=== PATIENT | male | born 1945 | race Caucasian/White ===

== ENCOUNTER 2017-01-20 11:00 | Emergency (ER) | payer MEDICARE, BC ==
[2017-01-20] MEDS ORDERED: Ketorolac 60 MG/2 ML SDV IM ONE (11:02)
[2017-01-20] MEDS ORDERED: Dexamethasone 4 MG/ML SDV IM ONE (11:02)
[2017-01-20 11:13] VITALS: BP 162/118
[2017-01-20] MEDS ORDERED: Take Home: predniSONE 20 MG, 2 Tab Pack PO ONE (11:35)
[2017-01-20] MEDS ORDERED: Take Home: Ketorolac 10 MG Tab, 4 Tab Pack PO ONE (11:35)
[2017-01-20] MEDS ORDERED: Take Home: predniSONE 20 MG, 2 Tab Pack ONE (11:42)
--- NOTE | 2017-01-20 11:42 | EDM.PDOC ---
ED HPI GENERAL MEDICAL PROBLEM - General Chief Complaint: General Stated Complaint: LEFT ELBOW PAIN Time Seen by Provider: 01/20/17 11:00 - History of Present Illness INITIAL COMMENTS - FREE TEXT/NARRATIVE: C/O severe elbow pain Onset: Gradual Duration: Day(s): Location: Reports: Upper Extremity, Left Front/Back Body Image: 1 - Red swollen elbow Quality: Reports: Sharp, Throbbing Severity: Severe Improves with: Reports: Medication Worsens with: Reports: Movement - Related Data Allergies Allergy/AdvReac Type Severity Reaction Status Date / Time sulfamethoxazole Allergy Cannot Verified 01/20/17 11:30 [From Bactrim] Remember trimethoprim [From Bactrim] Allergy Cannot Verified 05/18/15 10:06 Remember Home Meds: Home Meds Aspirin [Halfprin] 81 mg PO DAILY 04/23/15 [History] Diltiazem HCl [Cardizem Cd] 120 mg PO DAILY 04/23/15 [History] Metoprolol Succinate [Toprol XL] 50 mg PO DAILY 04/23/15 [History] Triamterene/Hydrochlorothiazid [Triamterene-HCTZ 37.5-25 MG] 1 cap PO DAILY [History] Past Medical History - Past Health History Medical/Surgical History: Denies Medical/Surgical History Musculoskeletal History: Reports: Connective Tissue Disease, Other (See Below) - Past Surgical History Other Musculoskeletal Surgeries/Procedures:: POSSIBLE GOUT L ELBOW Social & Family History - Family History Family Medical History: Unobtainable - Tobacco Use Smoking Status *Q: Former Smoker Used Tobacco, but Quit: No - Caffeine Use Caffeine Use: Reports: None - Recreational Drug Use Recreational Drug Use: No ED ROS GENERAL - Review of Systems Review Of Systems: ROS reveals no pertinent complaints other than HPI. ED EXAM, GENERAL - Physical Exam Exam: See Below Exam Limited By: No Limitations Ears: Normal External Exam Throat/Mouth: Normal Inspection Head: Atraumatic Neck: Normal Inspection Respiratory/Chest: No Respiratory Distress Cardiovascular: Normal Peripheral Pulses GI/Abdominal: Normal Bowel Sounds Extremities: Joint Swelling, Arm Pain, Limited Range of Motion Neurological: Alert, Oriented Psychiatric: Normal Affect Skin Exam: Erythema Course - Vital Signs Last Recorded V/S: Last Vital Signs Temp 99.3 F 01/20/17 11:02 Pulse 107 H 01/20/17 11:02 Resp 18 01/20/17 11:02 BP 162/118 H 01/20/17 11:02 Pulse Ox 98 01/20/17 11:02 - Orders/Labs/Meds Labs: Laboratory Tests 01/20/17 01/20/17 Range/Units 11:02 11:02 WBC 12.4 H (5.0-10.0) 10^3/uL RBC 5.09 (4.50-6.00) 10^6/uL Hgb 15.5 (14.0-18.0) g/dL Hct 45.0 (40.0-54.0) % MCV 88.4 (82.0-94.0) fL MCH 30.5 (27.0-32.0) pg MCHC 34.4 (33.0-38.0) g/dL RDW Coeff of Beatriz 14.3 (11.0-15.0) % Plt Count 205 (150-400) 10^3/uL Neut % (Auto) 73.8 (35-85) % Lymph % (Auto) 16.1 (10-55) % [place] % (Auto) 9.3 (0-16) % Eos % (Auto) 0.6 (0-5) % Baso % (Auto) 0.2 (0-3) % Neut # (Auto) 9.16 H (1.80-7.00) 10^3/uL Lymph # (Auto) 1.99 (1.00-4.80) 10^3/uL [place] # (Auto) 1.15 H (0.00-0.80) 10^3/uL Eos # (Auto) 0.07 (0.00-0.45) 10^3/uL Baso # (Auto) 0.02 10^3/uL Uric Acid 9.1 H (3.5-7.2) mg/dL Meds: Medications Discontinued Medications Generic Name Dose Route Start Last Admin Trade Name Freq PRN Reason Stop Dose Admin Dexamethasone 4 mg 01/20/17 11:02 01/20/17 11:22 Dexamethasone IM 01/20/17 11:03 4 mg ONETIME ONE Administration Ketorolac Tromethamine 60 mg 01/20/17 11:02 01/20/17 11:23 Toradol IM 01/20/17 11:03 60 mg ONETIME ONE Administration Ketorolac Tromethamine 2 packet 01/20/17 11:35 Take Home: Ketorolac 10 Mg, 4 Tab Pack PO 01/20/17 11:36 ONETIME ONE Prednisone 2 packet 01/20/17 11:35 Take Home: Prednisone 20 Mg, 2 Tab Pack PO 01/20/17 11:36 ONETIME ONE Departure - Departure Time of Disposition: 11:40 Disposition: Home, Self-Care 01 Condition: Good Clinical Impression: Gout - Discharge Information Instructions: Gout, [id number] Forms: ED Department Discharge Additional Instructions: Take your medications as prescribed. Follow up with your regular doctor next week
== END 2017-01-20 11:51 | disposition home or self-care (01) ==
LOC: CC.ED 11:00
DX: M10.9 Gout, unspecified (principal); Z88.2 Allergy status to sulfonamides; Z88.1 Allergy status to other antibiotic agents; Z79.82 Long term (current) use of aspirin; Z79.899 Other long term (current) drug therapy; Z87.891 Personal history of nicotine dependence
CPT/HCPCS: 36415; 84550; 85025; 96372; 99285; J1100; J1885

== ENCOUNTER → 2019-01-29 | Day surgery (SDC) | payer MEDICARE, BC ==
[~2019-01-29] MED LIST: Lidocaine 1% 20 ML MDV ONE
[2019-01-29 14:12] VITALS: BP 156/95; PULSE 82
== END ==
LOC: CC.SDS 10:27
PROVIDERS: ATTEND Family Medicine
DX: I87.2 Venous insufficiency (chronic) (peripheral) (principal); I86.8 Varicose veins of other specified sites; Z88.2 Allergy status to sulfonamides; Z88.1 Allergy status to other antibiotic agents; Z79.82 Long term (current) use of aspirin; Z79.899 Other long term (current) drug therapy; Z87.891 Personal history of nicotine dependence; I83.11 Varicose veins of right lower extremity with inflammation
CPT/HCPCS: 36475; A4216

== ENCOUNTER 2022-12-10 06:20 | Inpatient (IN) | payer MEDICARE, BC ==
[2022-12-10] MEDS ORDERED: Meclizine 12.5 MG Tab PO STA (07:33)
[2022-12-10] MEDS ORDERED: Sodium Chloride 0.9% 1,000 ML IV ONE (08:11)
[2022-12-10 08:12] LABS: BASOPHILS ABSOLUTE AUTO 0.02 10^3/uL (0.00-0.50); BASOPHILS PERCENT AUTO 0.2 % (0-1); EOSINOPHILS ABSOLUTE AUTO 0.06 10^3/uL (0.00-1.50); EOSINOPHILS PERCENT AUTO 0.6 % (0-6); HEMATOCRIT 45.4 % (42.0-52.0); HEMOGLOBIN 16.1 g/dL (14.0-18.0); IMMATURE GRAN ABSOLUTE AUTO 0.02 10^3/uL (0.00-0.49); IMMATURE GRAN PERCENT AUTO 0.2 % (0.0-4.9); LYMPHOCYTES ABSOLUTE AUTO 1.75 10^3/uL (0.60-5.00); LYMPHOCYTES PERCENT AUTO 17.5 % (24-44); MEAN CORPUSCULAR HGB CONC 35.5 g/dL (32.0-36.0); MEAN CORPUSCULAR VOLUME 84.5 fL (83.0-97.0); MONOCYTES ABSOLUTE AUTO 0.73 10^3/uL (0.00-1.50); MONOCYTES PERCENT AUTO 7.3 % (0-10); NEUTROPHILS ABSOLUTE AUTO 7.43 x10^3/uL (1.80-8.00); NEUTROPHILS PERCENT AUTO 74.2 % (41-71); PLATELET COUNT,PLT 208 10^3/uL (150-400); RED BLOOD CELL COUNT 5.37 x10^6/uL (4.50-6.00)
[2022-12-10 08:33] LABS: APPEARANCE,URINE CLEAR (CLEAR); BILIRUBIN,URINE NEGATIVE (NEGATIVE); COLOR,URINE YELLOW (YELLOW); GLUCOSE,URINE NEGATIVE (NEGATIVE); KETONES,URINE 15 mg/dL (NEGATIVE); LEUKOCYTE ESTERASE,URINE NEGATIVE (NEGATIVE); NITRITE,URINE NEGATIVE (NEGATIVE); OCCULT BLOOD,URINE TRACE-INTACT (NEGATIVE); PROTEIN,URINE 100 mg/dL (NEGATIVE); UROBILINOGEN,URINE 0.2 EU/dL (0.2-1.0)
[2022-12-10 08:57] LABS: RBC,URINE 0-5 /HPF (0-5); WBC,URINE 0-5 /HPF (0-5)
[2022-12-10 08:58] LABS: AMORPHOUS SEDIMENT,URINE FEW /HPF (NOT SEEN); BACTERIA,URINE OCCASIONAL /HPF (NOT SEEN); EPITHELIAL CELLS,URINE FEW /HPF (NOT SEEN); MUCUS,URINE FEW /HPF (NOT SEEN)
[2022-12-10] MEDS ORDERED: Iopamidol 755 Mg/ML 100 ML Bottle IVPUSH ONE (09:03)
[2022-12-10] MEDS ORDERED: Clopidogrel 75 MG Tab PO ONE (09:59)
[2022-12-10] MEDS ORDERED: Aspirin 81 MG Tab.Chew PO ONE (09:59)
[2022-12-10] MEDS ORDERED: Diazepam 5 MG Tab PO PRN (10:00)
[2022-12-10] MEDS ORDERED: Ondansetron 4 MG/2 ML SDV IVPUSH ONE (10:01)
[2022-12-10] MEDS ORDERED: Ondansetron 4 MG Tab.DIS PO PRN (10:03)
[2022-12-10] MEDS ORDERED: Acetaminophen 325 MG Tab PO PRN (10:03)
[2022-12-10 11:05] LABS: INR 1.02 (0.92-1.18); PROTHROMBIN TIME 10.5 SEC (9.3-11.3); PTT,PARTIAL THROMBOPLSTIN TIME 25.9 SEC (20.0-30.0)
[2022-12-10] MEDS: Losartan 100 MG Tab PO SCH (11:18)
[2022-12-10] MEDS: Diltiazem 120 MG Cap.CD PO SCH (12:44)
[2022-12-10] MEDS: Metoprolol Succinate 25 MG Tab.ER PO SCH (13:35)
[2022-12-10 17:18] LABS: ALANINE AMINOTRANSFERASE,ALT 31 U/L (12-78); ALBUMIN 3.8 g/dL (3.4-5.0); ALKALINE PHOSPHATASE 90 U/L (46-116); ASPARTATE AMNIOTRANSFERASE,AST 24 U/L (15-37); BILIRUBIN TOTAL 1.1 mg/dL (0.0-1.0); BLOOD UREA NITROGEN,BUN 13 mg/dL (7-18); CALCIUM 8.8 mg/dL (8.4-10.1); CARBON DIOXIDE,CO2 29 mmol/L (21-32); CHLORIDE,CL 103 mEq/L (98-106); CREATININE 0.8 mg/dL (0.7-1.3); EST CRCL DRUG DOSING (CG) 86.22 mL/min; GLUCOSE RANDOM 102 mg/dL (75-99); PROTEIN TOTAL,TP 7.4 g/dL (6.4-8.2); SODIUM,NA 141 mEq/L (136-145)
[2022-12-10 17:23] LABS: C-REACTIVE PROTEIN < 0.2 mg/dL (0.2-0.8); ESTIMATED GFR 92 mL/min (>=60)
[2022-12-10] MEDS ORDERED: Potassium Chloride 10 MEQ Tab.ER PO SCH (20:00)
[2022-12-11] MEDS ORDERED: Metoprolol Succinate 25 MG Tab.ER PO SCH (08:00)
[2022-12-11] MEDS: Metoprolol Succinate 25 MG Tab.ER PO SCH (08:08)
[2022-12-11] MEDS: Potassium Chloride 10 MEQ Tab.ER PO SCH ×2 (08:08→17:58)
[2022-12-11] MEDS: Apixaban 5 MG Tab PO SCH ×2 (08:09→19:47)
[2022-12-11] MEDS: Aspirin 81 MG Tab.Chew PO SCH (08:09)
[2022-12-11] MEDS: Losartan 100 MG Tab PO SCH (08:10)
[2022-12-11 09:08] LABS: BASOPHILS ABSOLUTE AUTO 0.02 10^3/uL (0.00-0.50); BASOPHILS PERCENT AUTO 0.2 % (0-1); EOSINOPHILS ABSOLUTE AUTO 0.07 10^3/uL (0.00-1.50); EOSINOPHILS PERCENT AUTO 0.7 % (0-6); HEMATOCRIT 48.9 % (42.0-52.0); HEMOGLOBIN 17.1 g/dL (14.0-18.0); IMMATURE GRAN ABSOLUTE AUTO 0.02 10^3/uL (0.00-0.49); IMMATURE GRAN PERCENT AUTO 0.2 % (0.0-4.9); LYMPHOCYTES ABSOLUTE AUTO 1.98 10^3/uL (0.60-5.00); LYMPHOCYTES PERCENT AUTO 19.8 % (24-44); MEAN CORPUSCULAR HEMOGLOBIN 29.7 pg (27.0-32.0); MEAN CORPUSCULAR VOLUME 84.9 fL (83.0-97.0); MONOCYTES ABSOLUTE AUTO 0.62 10^3/uL (0.00-1.50); MONOCYTES PERCENT AUTO 6.2 % (0-10); NEUTROPHILS ABSOLUTE AUTO 7.28 x10^3/uL (1.80-8.00); NEUTROPHILS PERCENT AUTO 72.9 % (41-71); PLATELET COUNT,PLT 230 10^3/uL (150-400); RED BLOOD CELL COUNT 5.76 x10^6/uL (4.50-6.00)
[2022-12-11 09:18] LABS: CALCIUM 9.5 mg/dL (8.4-10.1); CREATININE 0.9 mg/dL (0.7-1.3); EST CRCL DRUG DOSING (CG) 76.64 mL/min; POTASSIUM,K 3.5 mEq/L (3.5-5.0)
[2022-12-11] MEDS: Diltiazem 120 MG Cap.CD PO SCH (09:29)
[2022-12-11] MEDS ORDERED: cloNIDine 0.1 MG Tab PO ONE (19:00)
[2022-12-12] MEDS: Apixaban 5 MG Tab PO SCH (07:51)
[2022-12-12] MEDS: Aspirin 81 MG Tab.Chew PO SCH (07:51)
[2022-12-12] MEDS: Diltiazem 120 MG Cap.CD PO SCH (07:52)
[2022-12-12] MEDS: Potassium Chloride 10 MEQ Tab.ER PO SCH (07:52)
[2022-12-12] MEDS: Losartan 100 MG Tab PO SCH (07:53)
[2022-12-12 07:55] VITALS: BP 168/99
[2022-12-12] MEDS ORDERED: Metoprolol Succinate 100 MG Tab.ER PO SCH (08:00)
[2022-12-12 08:05] LABS: BASOPHILS ABSOLUTE AUTO 0.03 10^3/uL (0.00-0.50); BASOPHILS PERCENT AUTO 0.3 % (0-1); EOSINOPHILS ABSOLUTE AUTO 0.12 10^3/uL (0.00-1.50); EOSINOPHILS PERCENT AUTO 1.3 % (0-6); HEMATOCRIT 45.3 % (42.0-52.0); HEMOGLOBIN 16.1 g/dL (14.0-18.0); IMMATURE GRAN ABSOLUTE AUTO 0.02 10^3/uL (0.00-0.49); IMMATURE GRAN PERCENT AUTO 0.2 % (0.0-4.9); LYMPHOCYTES ABSOLUTE AUTO 1.99 10^3/uL (0.60-5.00); LYMPHOCYTES PERCENT AUTO 21.3 % (24-44); MEAN CORPUSCULAR HEMOGLOBIN 30.3 pg (27.0-32.0); MEAN CORPUSCULAR HGB CONC 35.5 g/dL (32.0-36.0); MEAN CORPUSCULAR VOLUME 85.2 fL (83.0-97.0); MONOCYTES ABSOLUTE AUTO 0.72 10^3/uL (0.00-1.50); MONOCYTES PERCENT AUTO 7.7 % (0-10); NEUTROPHILS ABSOLUTE AUTO 6.47 x10^3/uL (1.80-8.00); NEUTROPHILS PERCENT AUTO 69.2 % (41-71); PLATELET COUNT,PLT 221 10^3/uL (150-400); RED BLOOD CELL COUNT 5.32 x10^6/uL (4.50-6.00); WHITE BLOOD CELL COUNT,WBC 9.4 10^3/uL (4.0-11.0)
[2022-12-12 08:25] VITALS: PULSE 76
[2022-12-12 08:31] LABS: CREATININE 0.9 mg/dL (0.7-1.3); EST CRCL DRUG DOSING (CG) 76.64 mL/min; POTASSIUM,K 3.2 mEq/L (3.5-5.0)
[2022-12-13] MEDS ORDERED: Potassium Chloride 10 MEQ Tab.ER PO SCH (17:30)
== END 2022-12-12 09:45 | DRG 65 ==
LOC: CC.ED 06:20 → CC.MS 09:48 → UNDOADMIN 09:48 → CC.MS 10:03
PROVIDERS: ADMIT Physician Assistant Medical; ATTEND Physician Assistant Medical
DX: I63.9 Cerebral infarction, unspecified (principal); E86.0 Dehydration; I48.20 Chronic atrial fibrillation, unspecified; E87.6 Hypokalemia; I10 Essential (primary) hypertension; R29.700 NIHSS score 0; H53.2 Diplopia; H91.92 Unspecified hearing loss, left ear; R40.2414 Glasgow coma scale score 13-15, 24 hours or more after hospital admission; Z88.2 Allergy status to sulfonamides; Z88.1 Allergy status to other antibiotic agents; Z79.899 Other long term (current) drug therapy
CPT/HCPCS: 36415; 69209; 70450; 70496; 70498; 71045; 80048; 80053; 81001; 84484; 85025; 85610; 85730; 86140; 93005; 93306; 93880; 97110-GP; 97116-GP; 97161-GP; 99285; A9270-GY; J2405; J7030; Q9967